=== PATIENT | male | born 1985 | race Caucasian/White ===

== ENCOUNTER 2017-12-31 07:08 | Emergency (ER) | payer OTHER, SELFPAY ==
[2017-12-31 07:24] VITALS: BP 124/67; PULSE 109; RESP 20; TEMP 38.6; O2SAT 96; BMI 37.8
[2017-12-31] MEDS: IBUPROFEN SUSP 100 MG/5 ML UDC 800 MG PO (07:40)
--- NOTE | 2017-12-31 07:41 | ED.URI ---
HPI - URI/Sore Throat General Chief Complaint: Upper Respiratory Symptoms Stated Complaint: STREP THROAT Time Seen by Provider: 12/31/17 07:24 Source: patient and RN notes reviewed Mode of arrival: ambulatory Limitations: no limitations History of Present Illness HPI Narrative: Patient is a 32-year-old male who presents with a sore throat which started yesterday. He typically gets strep a few times a year. He had body aches and chills he currently has a fever here. He is able to swallow though it is painful. MD Complaint: fever and sore throat Onset (ago): day(s) (1) Duration: constant Relieving factors: nothing Exacerbating factors: nothing Related Data Previous Rx's Medication Instructions Recorded amoxicillin 500 mg PO TID #21 cap 12/31/17 Allergies Allergy/AdvReac Type Severity Reaction Status Date / Time No Known Drug Allergies Allergy Verified 12/31/17 07:35 Review of Systems Review of Systems GENERAL: + fever,+ chills HEENT: + throat pain RESPIRATORY: Denies dyspnea, cough, wheezing CARDIOVASCULAR: Denies chest pain, palpitations GASTROINTESTINAL: Denies nausea, vomiting MUSCULOSKELETAL: Denies extremity pain, injury SKIN: No rash, no laceration, no pruritus NEUROLOGIC: Denies weakness, dizziness, headache, numbness 8 point review of systems is negative except for those stated above and HPI PFSH Medical History Essential tremor (Acute) Social History Smoking Status: Former smoker Exam Initial Vital Signs Initial Vital Signs: Vital Signs Temperature 101.4 F H 12/31/17 07:24 Pulse Rate 109 H 12/31/17 07:24 Respiratory Rate 20 12/31/17 07:24 Blood Pressure 124/67 H 12/31/17 07:24 Pulse Oximetry 96 12/31/17 07:24 Const General: cooperative and healthy appearing Nutritional Appearance: average body habitus Orientation: alert, awake and oriented x3 HENMT Head: normal to inspection and normocephalic Mouth: No drooling, No fetor hepaticus and No muffled voice Throat: uvula midline and abnormal tonsil bilaterally erythema, exudates and hypertrophy Neck Neck: full ROM, no meningeal signs and lymphadenopathy Resp Effort & Inspection: normal respiratory effort, able to speak in complete sentences, no respiratory distress and no use of accessory muscles Auscultation: clear to auscultation bilaterally, no rales, no rhonchi and no wheezes Cardio Rate: regular rate Rhythm: regular rhythm Heart Sounds: no click, no gallops, no murmurs and no rubs Pulses: normal peripheral pulses Skin General: no rashes or lesions noted, No jaundice and No petechiae Neuro General: alert, oriented x3, gait normal and no focal motor deficits Speech: speech normal Course Orders Ordered: Discontinued Medications Ibuprofen (Motrin Susp) 800 mg PO NOW ONE Stop: 12/31/17 07:39 Last Admin: 12/31/17 07:40 Dose: 800 mg Vital Signs - 8 hr 12/31/17 07:24 12/31/17 08:15 Temperature 101.4 F H 99.0 F Pulse Rate 109 H 79 Respiratory Rate 20 16 Blood Pressure 124/67 H Blood Pressure [Left Arm] 116/69 Pulse Oximetry 96 95 MDM - URI/Sore Throat MDM Narrative Medical decision making narrative: He appears nontoxic a but does have bad breath with exudate and erythema. This was likely strep. He has had strep multiple times of this feels the same. No clinical indication of retropharyngeal abscess or peritonsillar abscess Discharge Plan Departure Patient Disposition: Home, Self-Care Clinical Impression: Pharyngitis Discharge Date/Time: 12/31/17 08:33 Interventions: ED Discharge Assessment Last Done: 12/31/17 08:31 Instructions: DI for Strep Throat Activity Restrictions/Additional Instructions: *You have been diagnosed with strep throat *What to do: Increase fluids, fever control, increase diet as tolerated *Continue to take medications as directed At your request you're medications have been faxed to [facility] in [place] Amoxicillin 500 mg 3 times a day *Follow up with your primary care provider in 2-3 days *Return to ER if you should have difficulty swallowing a fever not controlled, decreased oral intake or any new, worsening or concerning symptoms Prescriptions: New amoxicillin 500 mg capsule 500 mg PO TID Qty: 21 RF: 0 Referrals: [facility] [Provider Group] Stand Alone Forms: Work/School Restrictions
--- NOTE | 2017-12-31 07:43 | PC.NURSE ---
pt given 800mg tab po. dr beaver aware.
[2017-12-31 08:15] VITALS: BP 116/69; PULSE 79; RESP 16; TEMP 37.2; O2SAT 95
== END 2017-12-31 08:33 | disposition home or self-care (01) ==
PROVIDERS: Emergency Provider Emergency Medicine
DX: J02.9 Acute pharyngitis, unspecified (principal)
CPT/HCPCS: 99282